=== PATIENT | male | born 1950 | race Caucasian/White ===

== ENCOUNTER → 2018-06-11 07:10 | Outpatient (CLI) | payer OTHER, SELFPAY ==
[2018-06-11 08:39] LABS: Alanine Aminotransferase 42 IU/L (21-72); Albumin 4.1 g/dL (3.5-5.0); Albumin Globulin Ratio 1.5 (1.0-2.8); Alkaline Phosphatase 68 U/L (38-126); Aspartate Aminotransferase 34 IU/L (17-59); BUN Creatinine Ratio 21.1 (6-22); Bilirubin Total 0.8 mg/dL (0.2-1.3); Blood Urea Nitrogen 19 mg/dL (9-20); Calcium 8.7 mg/dL (8.4-10.2); Carbon Dioxide 29 mmol/L (22-32); Chloride 103 mmol/L (98-107); Cholesterol 144 mg/dL (140-199); Estimated Glomerular Filt Rate > 60.0 mL/min (>60); Globulin 2.7 g/dL (1.7-4.1); Glucose 101 mg/dL (80-110); HDL Cholesterol 32 mg/dL (40-60); HEMOLYSIS < 15 (0-50); LDL Cholesterol Calculated 90 mg/dL (<100); Potassium 4.3 mmol/L (3.4-5.1); Sodium 140 mmol/L (137-145); Total Protein 6.8 g/dL (6.3-8.2); Triglycerides 111 mg/dL (35-150)
== END ==
PROVIDERS: PCP Internal Medicine; Visit Provider Internal Medicine
DX: E78.49 Other hyperlipidemia (principal)
CPT/HCPCS: 36415; 80053; 80061

== ENCOUNTER → 2018-06-15 14:52 | Outpatient (CLI) | payer OTHER, SELFPAY ==
[2018-06-15 19:04] LABS: Hep C Virus Ab w/Reflex Quant NEGATIVE s/c (NEGATIVE)
== END ==
PROVIDERS: PCP Internal Medicine; Visit Provider Internal Medicine
DX: Z00.01 Encounter for general adult medical examination with abnormal findings (principal); E78.49 Other hyperlipidemia
CPT/HCPCS: 36415; 86803

== ENCOUNTER → 2018-06-16 08:03 | Outpatient (CLI) | payer OTHER, SELFPAY ==
--- NOTE | 2018-06-16 08:05 | DI.US.S_ITS ---
PROCEDURE: US ABD AORTA ANEURYSM SCREEN INDICATIONS: SCREEN TECHNIQUE: Real time scanning was performed of the aorta and iliac arteries, with image documentation. COMPARISON: None. FINDINGS: Aorta: Proximal aortic diameter measures 2.0 cm. Mid-aorta measures 1.6 cm. Distal aortic diameter is 1.4 cm. Iliac arteries: Right common iliac artery measures 1.1 cm. Left common iliac artery measures 1.0 cm. IMPRESSION: No abdominal aortic aneurysm. Dictated by: Alice Mehta M.D. on 06/16/2018 at 8:52 Approved by: Alice Mehta M.D. on 06/16/2018 at 8:53
== END ==
PROVIDERS: PCP Internal Medicine; Visit Provider Internal Medicine
DX: Z13.6 Encounter for screening for cardiovascular disorders (principal)
CPT/HCPCS: 76706

== ENCOUNTER → 2020-01-05 07:50 | Outpatient (CLI) | payer OTHER, SELFPAY ==
[2020-01-05 08:35] LABS: Alanine Aminotransferase 28 IU/L (<50); Albumin 4.2 g/dL (3.5-5.0); Albumin Globulin Ratio 1.4 (1.0-2.8); Alkaline Phosphatase 66 U/L (38-126); Aspartate Aminotransferase 28 IU/L (17-59); BUN Creatinine Ratio 14.7 (6-22); Bilirubin Total 0.7 mg/dL (0.2-1.3); Blood Urea Nitrogen 16 mg/dL (9-20); Calcium 8.6 mg/dL (8.4-10.2); Carbon Dioxide 31 mmol/L (22-32); Chloride 103 mmol/L (98-107); Cholesterol 146 mg/dL (140-199); Erythrocyte Sedimentation Rate 1 MM/HR (0-15); Estimated Glomerular Filt Rate > 60.0 mL/min (>60); Glucose 106 mg/dL (80-110); HDL Cholesterol 35 mg/dL (40-60); HEMOLYSIS 16 (0-50); LDL Cholesterol Calculated 75 mg/dL (<100); Potassium 4.4 mmol/L (3.4-5.1); Sodium 139 mmol/L (137-145); Total Protein 7.2 g/dL (6.3-8.2); Triglycerides 181 mg/dL (35-150); Uric Acid 6.9 mg/dL (3.5-8.5)
== END ==
PROVIDERS: PCP Internal Medicine; Referring Provider Internal Medicine; Visit Provider Internal Medicine
DX: E78.5 Hyperlipidemia, unspecified (principal); M19.90 Unspecified osteoarthritis, unspecified site
CPT/HCPCS: 36415; 80053; 80061; 84550; 85651

== ENCOUNTER → 2020-03-16 07:51 | Outpatient (CLI) | payer OTHER, SELFPAY ==
[2020-03-16] MEDS: COVID-19 VACC #1, MRNA(MOD) 100 MCG/0.5 ML VIAL IM (07:58)
== END ==
PROVIDERS: PCP Internal Medicine; Visit Provider Internal Medicine
DX: Z23 Encounter for immunization (principal)
CPT/HCPCS: 0011A; 91301

== ENCOUNTER → 2020-04-13 07:43 | Outpatient (CLI) | payer OTHER, SELFPAY ==
[2020-04-13] MEDS: COVID-19 VACC #2, MRNA(MOD) 100 MCG/0.5 ML VIAL IM (07:48)
== END ==
PROVIDERS: PCP Internal Medicine; Visit Provider Internal Medicine
DX: Z23 Encounter for immunization (principal)
CPT/HCPCS: 0012A; 91301

== ENCOUNTER → 2021-03-06 07:23 | Outpatient (CLI) | payer OTHER, SELFPAY ==
[2021-03-06 08:54] LABS: Appearance Urine UA CLEAR; Bilirubin Urine UA NEGATIVE (NEGATIVE); Color Urine UA YELLOW; Glucose Urine UA NEGATIVE (Negative); Ketones Urine UA NEGATIVE (NEGATIVE); Leukocyte Esterase Urine UA NEGATIVE (NEGATIVE); Nitrite Urine UA NEGATIVE (Negative); Occult Blood Urine UA NEGATIVE (Negative); Protein Urine UA NEGATIVE (Negative); Specific Gravity Urine UA 1.025 (1.000-1.035); Urobilinogen Urine UA 0.2 E.U./dL (0.2); pH Urine UA 5.5 (4.5-8.0)
[2021-03-06 09:09] LABS: Add Manual Diff / Slide Review NO; Basophils Absolute Auto 0 /uL (0-100); Basophils Percent Auto 0.8 % (0-2); Eosinophils Absolute Auto 200 /uL (0-450); Eosinophils Percent Auto 3.4 % (2-4); Hemoglobin 15.7 g/dL (13.5-17.5); Lymphocytes Absolute Auto 1400 /uL (1100-4500); Lymphocytes Percent Auto 24.9 % (25-40); Mean Corpuscular HGB Conc 34.9 % (30-36); Mean Corpuscular Hemoglobin 31.6 PG (26-34); Mean Corpuscular Volume 90.5 fL (80-100); Monocytes Absolute Auto 600 /uL (0-900); Monocytes Percent Auto 11.2 % (3-14); Neutrophils Absolute Auto 3400 /uL (1500-7000); Neutrophils Percent Auto 59.7 % (50-75); Platelet Count 151 X10^3/uL (150-400); Red Blood Cell Count 4.97 X10^6/uL (4.5-5.9); Red Cell Distribution Width 12.7 % (11.6-14.8); White Blood Cell Count 5.6 X10^3/uL (4.5-11.0)
[2021-03-06 09:13] LABS: Bacteria Urine None Seen; Culture Indicated Urine Cult Not Indicated; RBC Urine None Seen (0-5/HPF); Squamous Epithelial Cell Urine None Seen (0-5/HPF); WBC Urine None Seen (0-5/HPF)
[2021-03-06 09:41] LABS: Alanine Aminotransferase 27 IU/L (<50); Albumin 3.9 g/dL (3.5-5.0); Albumin Globulin Ratio 1.6 (1.0-2.8); Alkaline Phosphatase 65 U/L (38-126); Aspartate Aminotransferase 30 IU/L (17-59); BUN Creatinine Ratio 14.4 (6-22); Bilirubin Total 0.6 mg/dL (0.2-1.3); Blood Urea Nitrogen 13 mg/dL (9-20); Calcium 8.5 mg/dL (8.4-10.2); Carbon Dioxide 28 mmol/L (22-32); Chloride 106 mmol/L (98-107); Cholesterol 146 mg/dL (140-199); Estimated Glomerular Filt Rate > 60.0 mL/min (>60); Globulin 2.4 g/dL (1.7-4.1); Glucose 105 mg/dL (80-110); HDL Cholesterol 41 mg/dL (40-60); HEMOLYSIS < 15 (0-50); LDL Cholesterol Calculated 81 mg/dL (<100); Potassium 4.4 mmol/L (3.4-5.1); Sodium 140 mmol/L (137-145); Total Protein 6.3 g/dL (6.3-8.2); Triglycerides 121 mg/dL (35-150)
[2021-03-06 09:59] LABS: TSH w/ Reflex to FT4 1.83 uIU/mL (0.47-4.68)
[2021-03-06 10:06] LABS: Prostate Specific Antigen Scrn 1.75 ng/mL (0.1-4.0)
[2021-03-06 10:25] LABS: Vitamin B12 Reflex MMA if <400 514 pg/mL (239-931)
== END ==
PROVIDERS: PCP Family Medicine; Referring Provider Family Medicine; Visit Provider Family Medicine
DX: E78.2 Mixed hyperlipidemia (principal); G89.29 Other chronic pain; R41.3 Other amnesia; R51.9 Headache, unspecified; K21.9 Gastro-esophageal reflux disease without esophagitis; L71.9 Rosacea, unspecified; Z12.5 Encounter for screening for malignant neoplasm of prostate
CPT/HCPCS: 36415; 80053; 80061; 81001; 82607; 84443; 85025; G0103

== ENCOUNTER → 2021-03-10 08:27 | Outpatient (CLI) | payer OTHER, SELFPAY ==
--- NOTE | 2021-03-10 08:28 | DI.MRI.S_ITS ---
PROCEDURE: MR HEAD/BRAIN WO CON INDICATIONS: Chronic headache, not significantly improved with meds TECHNIQUE: Noncontrast axial T1 spin echo, axial T2 fast spin echo, sagittal and axial FLAIR, coronal T2 fast spin echo, axial gradient echo, axial diffusion and ADC through the brain. COMPARISON: None. FINDINGS: Image quality: Excellent. CSF Spaces: Basal cisterns are patent. No extra-axial fluid collections. Ventricles are normal in size and shape. Brain: Mild global cerebral volume loss which appears age commensurate and demonstrates no definite regional or lobar predilection to suggest a specific neuro degenerative disorder. No intracranial masses or hemorrhage. Buckley/white matter interface is normal. Brainstem appears normal. Diffusion-weighted images demonstrate no acute ischemic insult. No chronic ischemic insults. Normal intravascular flow voids are present. Skull and face: Calvarium has normal marrow signal. Orbits appear normal. Sinuses: Sinuses and mastoids are clear. IMPRESSION: Mild global cerebral volume loss, commensurate with age. Otherwise unremarkable MRI of the brain. Dictated by: Kelvin Atkins M.D. on 03/11/2021 at 21:42 Approved by: Kelvin Atkins M.D. on 03/11/2021 at 21:43
== END ==
PROVIDERS: PCP Family Medicine; Referring Provider Family Medicine; Visit Provider Family Medicine
DX: R51.9 Headache, unspecified (principal); G89.29 Other chronic pain
CPT/HCPCS: 70551

== ENCOUNTER → 2021-05-16 09:20 | Outpatient (CLI) | payer OTHER, SELFPAY ==
[2021-05-16 10:59] LABS: COVID19 -Nasal RAPID Negative (Negative)
== END ==
PROVIDERS: PCP Family Medicine; Visit Provider Surgery
DX: Z01.812 Encounter for preprocedural laboratory examination (principal); Z20.822 Contact with and (suspected) exposure to COVID-19
CPT/HCPCS: 87635; C9803

== ENCOUNTER 2021-05-17 13:19 | Day surgery (SDC) | payer OTHER, SELFPAY ==
[2021-05-17 13:42] VITALS: BMI 25.8
[2021-05-17 13:55] VITALS: BP 126/63; PULSE 77; RESP 16; TEMP 37; O2SAT 96
[2021-05-17] MEDS: LACTATED RINGERS 1,000 ML 42 ML IV (14:10)
--- NOTE | 2021-05-17 14:46 | PM.HP.1 ---
History of Present Illness History of Present Illness Date Patient Seen: 05/17/21 Time Patient Seen: 14:46 Chief complaint: SDC Narrative: Eugene is a 70-year-old man who is here for his colonoscopy. His last 1 was 10 years ago and there were no polyps. His first had a few polyps and was performed with minimal sedation which was fine with him. Patient History Medical History (Updated 05/17/21 @ 14:47 by Jarrett Moss MD) Chicken pox Chronic headache Colon cancer screening Colon polyps GERD (gastroesophageal reflux disease) (~2003) Hearing loss Hyperlipidemia Measles Mumps Rosacea (~2014) Tinnitus (~2018) Wears glasses Surgical History Anesthesia History of appendectomy (~2012) History of tonsillectomy (~1959) History of vasectomy (~1989) Family & Social History Family History (Updated 02/28/21 @ 19:40 by Agnes Law) Father Subarachnoid hemorrhage Grandfather Cancer Grandfather Stroke Social History: household members spouse Tobacco & Substance use: Tobacco type cigarettes,cigars Smoking Status Former smoker alcohol intake current alcohol intake frequency 3 or more drinks per day Substance Use Type does not use Meds Home Medications and Allergies Home Medications Medication Instructions Recorded Confirmed Type atorvastatin 10 mg tablet 10 mg DAILY 05/17/21 05/17/21 History Allergies Allergy/AdvReac Type Severity Reaction Status Date / Time No Known Allergies Allergy Uncoded 05/17/21 13:38 Exam Vital Signs (past 8 hours): - 05/17/21 13:55 Temperature 98.6 F Pulse Rate 77 Respiratory Rate 16 Blood Pressure 126/63 Pulse Oximetry 96 Oxygen Delivery Method Room Air Const General: healthy appearing Resp Effort & Inspection: normal respiratory effort GI Palpation: soft Assessment & Plan Assessment and plan (1) Colon cancer screening: Status: Acute Plan 70-year-old man here for colonoscopy for colon cancer screening. We reviewed the risks and benefits and would like to proceed with light sedation only. COVID-19 COVID-19 status: Negative Result date/Date tested (Pos, Neg/Pending): 05/16/21 Time Spent With Patient Critical Care time: I spent a total of [] minutes of critical care time on this patient's care today; this time is exclusive of procedural time.
[2021-05-17] MEDS: fentaNYL 250 MCG/5 ML INJ IV (14:50)
[2021-05-17] MEDS: MIDAZOLAM 5 MG/5 ML VIAL IV (14:50)
--- NOTE | 2021-05-17 15:32 | PM.OP.COLON ---
Operative Date/Time/Diagnoses Date of procedure: 05/17/21 Time of procedure: 15:32 Pre-op diagnosis: Colon cancer screening Post-op diagnosis: same Procedure & Clinicians Study performed: Colonoscopy Same procedure as scheduled: Yes Surgeon: Jarrett Moss Procedure Notes Procedure in detail: Procedure: The patient was brought to the endoscopy suite, placed in left lateral decubitus position. The patient was connected to monitoring devices. A time-out was performed. Sedation was administered. Once the patient was adequately sedated, a digital rectal exam was performed and was normal. The scope was then inserted and advanced to the cecum where the appendiceal orifice was identified and photographed. The scope was then slowly withdrawn over greater than 6 minutes. Mucosa was thoroughly inspected. There were no polyps or diverticula. The scope was retroflexed in the rectum. Few small internal hemorrhoids were noted. The scope was straightened and removed. The patient was awakened and brought to recovery. Versed: 2 mg Fentanyl: 50 mcg EBL: 0 Findings: Normal colon Scope withdrawal time: 10 Sedation minutes: 36 Post-procedure Recommendations: Colonoscopy in 10 years Disposition: PACU
--- NOTE | 2021-05-17 15:42 | SUR.PHASEII ---
discharge instructions reviewed with pt and he verbalized understanding.
[2021-05-17 15:43] VITALS: BP 130/85; PULSE 85; RESP 15; TEMP 36.6; O2SAT 97
== END 2021-05-17 15:55 | disposition home or self-care (01) ==
PROVIDERS: PCP Family Medicine; Referring Provider Surgery; Visit Provider Surgery
PROC: 0DJD8ZZ Inspection of Lower Intestinal Tract, Via Natural or Artificial Opening Endoscopic (ICD-10-PCS; CPT 45378; principal; 2021-05-17 14:30)
DX: Z12.11 Encounter for screening for malignant neoplasm of colon (principal); Z86.010 Personal history of colon polyps; K64.8 Other hemorrhoids
CPT/HCPCS: 45378; 99152; 99153; J2250; J3010

== ENCOUNTER → 2022-02-24 14:15 | Outpatient (CLI) | payer OTHER, SELFPAY ==
[2022-02-24 15:41] LABS: Influenza A - CEPHEID Flu A NEGATIVE (NEGATIVE); Influenza B - CEPHEID Flu B NEGATIVE (NEGATIVE); Respiratory Syncytial Virus Negative (Negative)
[2022-02-24 16:11] LABS: COVID-19 CEPHEID 4-PLEX PCR Negative (Negative)
== END ==
PROVIDERS: PCP Family Medicine; Visit Provider Student in an Organized Health Care Education/Training Program
DX: J02.9 Acute pharyngitis, unspecified (principal)
CPT/HCPCS: 0241U; 87070

== ENCOUNTER → 2022-03-27 07:08 | Outpatient (CLI) | payer OTHER, SELFPAY ==
[2022-03-27 08:05] LABS: Add Manual Diff / Slide Review NO; Basophils Absolute Auto 0 /uL (0-100); Basophils Percent Auto 0.6 % (0-2); Eosinophils Absolute Auto 200 /uL (0-450); Eosinophils Percent Auto 3.7 % (2-4); Hematocrit 45.8 % (41-53); Hemoglobin 15.3 g/dL (13.5-17.5); Lymphocytes Absolute Auto 1700 /uL (1100-4500); Lymphocytes Percent Auto 27.6 % (25-40); Mean Corpuscular HGB Conc 33.4 % (30-36); Mean Corpuscular Hemoglobin 30.5 PG (26-34); Mean Corpuscular Volume 91.2 fL (80-100); Monocytes Absolute Auto 700 /uL (0-900); Monocytes Percent Auto 11.6 % (3-14); Neutrophils Absolute Auto 3600 /uL (1500-7000); Neutrophils Percent Auto 56.5 % (50-75); Platelet Count 182 X10^3/uL (150-400); Red Blood Cell Count 5.03 X10^6/uL (4.5-5.9); White Blood Cell Count 6.3 X10^3/uL (4.5-11.0)
[2022-03-27 08:20] LABS: Alanine Aminotransferase 37 IU/L (<50); Albumin Globulin Ratio 1.4 (1.0-2.8); Alkaline Phosphatase 64 U/L (38-126); Aspartate Aminotransferase 30 IU/L (17-59); Bilirubin Total 0.5 mg/dL (0.2-1.3); Blood Urea Nitrogen 16 mg/dL (9-20); Calcium 8.3 mg/dL (8.4-10.2); Carbon Dioxide 32 mmol/L (22-32); Chloride 102 mmol/L (98-107); Cholesterol 168 mg/dL (140-199); Estimated Glomerular Filt Rate > 60 mL/min (>60); Globulin 2.9 g/dL (1.7-4.1); Glucose 99 mg/dL (80-110); HDL Cholesterol 36 mg/dL (40-60); HEMOLYSIS < 15 (0-50); LDL Cholesterol Calculated 107 mg/dL (<100); Potassium 4.9 mmol/L (3.4-5.1); Sodium 140 mmol/L (137-145); Total Protein 6.9 g/dL (6.3-8.2); Triglycerides 124 mg/dL (35-150)
[2022-03-27 08:50] LABS: Prostate Specific Antigen Scrn 1.98 ng/mL (0.1-4.0)
[2022-03-27 08:51] LABS: TSH w/ Reflex to FT4 2.34 uIU/mL (0.47-4.68)
== END ==
PROVIDERS: PCP Family Medicine; Referring Provider Family Medicine; Visit Provider Family Medicine
DX: E78.5 Hyperlipidemia, unspecified (principal); R03.0 Elevated blood-pressure reading, without diagnosis of hypertension; Z12.5 Encounter for screening for malignant neoplasm of prostate
CPT/HCPCS: 36415; 80053; 80061; 84443; 85025; G0103

== ENCOUNTER → 2023-04-23 07:34 | Outpatient (CLI) | payer OTHER, SELFPAY ==
[2023-04-23 08:08] LABS: Add Manual Diff / Slide Review NO; Basophils Absolute Auto 0 /uL (0-100); Basophils Percent Auto 0.6 % (0-2); Eosinophils Absolute Auto 100 /uL (0-450); Eosinophils Percent Auto 2.6 % (2-4); Hematocrit 47.1 % (41-53); Hemoglobin 16.2 g/dL (13.5-17.5); Lymphocytes Absolute Auto 1600 /uL (1100-4500); Lymphocytes Percent Auto 28.7 % (25-40); Mean Corpuscular HGB Conc 34.4 % (30-36); Mean Corpuscular Hemoglobin 31.7 PG (26-34); Mean Corpuscular Volume 92.1 fL (80-100); Monocytes Absolute Auto 800 /uL (0-900); Monocytes Percent Auto 14.1 % (3-14); Neutrophils Absolute Auto 3100 /uL (1500-7000); Platelet Count 176 X10^3/uL (150-400); Red Blood Cell Count 5.12 X10^6/uL (4.5-5.9); Red Cell Distribution Width 12.5 % (11.6-14.8); White Blood Cell Count 5.7 X10^3/uL (4.5-11.0)
[2023-04-23 08:28] LABS: Alanine Aminotransferase 33 IU/L (<50); Albumin Globulin Ratio 1.5 (1.0-2.8); Alkaline Phosphatase 61 U/L (38-126); Aspartate Aminotransferase 36 IU/L (17-59); BUN Creatinine Ratio 18.8 (6-22); Blood Urea Nitrogen 19 mg/dL (9-20); Calcium 8.6 mg/dL (8.4-10.2); Carbon Dioxide 32 mmol/L (22-32); Chloride 105 mmol/L (98-107); Cholesterol 156 mg/dL (140-199); Estimated Glomerular Filt Rate > 60 mL/min (>60); Globulin 2.7 g/dL (1.7-4.1); Glucose 111 mg/dL (80-110); HDL Cholesterol 41 mg/dL (40-60); HEMOLYSIS < 15 (0-50); LDL Cholesterol Calculated 85 mg/dL (<100); Sodium 139 mmol/L (137-145); Total Protein 6.7 g/dL (6.3-8.2); Triglycerides 150 mg/dL (35-150)
[2023-04-23 08:57] LABS: Prostate Specific Antigen Scrn 2.64 ng/mL (0.1-4.0)
[2023-04-23 09:02] LABS: TSH w/ Reflex to FT4 2.12 uIU/mL (0.47-4.68)
[2023-04-24 08:11] LABS: Apolipoprotein B 87 mg/dL (<90)
== END ==
LOC: LAB 07:35
PROVIDERS: PCP Family Medicine; Referring Provider Family Medicine; Visit Provider Family Medicine
DX: E78.2 Mixed hyperlipidemia (principal); L71.9 Rosacea, unspecified; Z79.899 Other long term (current) drug therapy; Z12.5 Encounter for screening for malignant neoplasm of prostate
CPT/HCPCS: 36415; 80053; 80061; 82172; 84443; 85025; G0103

== ENCOUNTER → 2023-06-01 09:07 | Outpatient (CLI) | payer OTHER, SELFPAY ==
[2023-06-01 09:58] LABS: Influenza A - CEPHEID Flu A NEGATIVE (NEGATIVE); Influenza B - CEPHEID Flu B NEGATIVE (NEGATIVE); Respiratory Syncytial Virus Negative (Negative)
[2023-06-01 11:25] LABS: COVID-19 CEPHEID 4-PLEX PCR Negative (Negative)
== END ==
PROVIDERS: PCP Family Medicine; Visit Provider Physician Assistant Medical
DX: R05.1 Acute cough (principal); J02.9 Acute pharyngitis, unspecified
CPT/HCPCS: 0241U; 87070

== ENCOUNTER → 2023-06-23 11:38 | Outpatient (CLI) | payer OTHER, SELFPAY ==
--- NOTE | 2023-06-23 11:39 | DI.RAD.S_ITS ---
PROCEDURE: XR CHEST 2V INDICATIONS: subacute cough TECHNIQUE: 2 views of the chest were acquired. COMPARISON: None. FINDINGS: Surgical changes and devices: None. Lungs and pleura: Lungs are clear. No pleural effusions or pneumothorax. Mediastinum: Mediastinal contours are normal. Heart size is normal. Bones and chest wall: No suspicious bony abnormalities. Soft tissues appear unremarkable. IMPRESSION: No acute cardiopulmonary abnormality is seen. Dictated by: Alice Mehta M.D. on 06/23/2023 at 16:53 Approved by: Alice Mehta M.D. on 06/23/2023 at 16:54
== END ==
PROVIDERS: PCP Family Medicine; Referring Provider Family Medicine; Visit Provider Family Medicine
DX: R05.3 Chronic cough (principal); J06.9 Acute upper respiratory infection, unspecified
CPT/HCPCS: 71046

== ENCOUNTER → 2023-07-30 07:22 | Outpatient (CLI) | payer OTHER, SELFPAY ==
[2023-07-30 09:19] LABS: Prostate Specific Antigen Scrn 2.05 ng/mL (0.1-4.0)
== END ==
PROVIDERS: PCP Family Medicine; Referring Provider Family Medicine; Visit Provider Family Medicine
DX: Z12.5 Encounter for screening for malignant neoplasm of prostate (principal)
CPT/HCPCS: 36415; G0103

== ENCOUNTER → 2024-01-30 15:54 | Outpatient (CLI) | payer OTHER, SELFPAY | PROVIDERS: PCP Family Medicine; Referring Provider Family Medicine; Visit Provider Family Medicine | DX: Z12.5 Encounter for screening for malignant neoplasm of prostate (principal) | CPT/HCPCS: 36415; G0103 ==

== ENCOUNTER → 2024-05-20 07:01 | Outpatient (CLI) | payer OTHER, SELFPAY ==
[2024-05-20 07:56] LABS: COVID-19 CEPHEID 4-PLEX PCR Negative (Negative); Influenza A - CEPHEID Flu A NEGATIVE (NEGATIVE); Influenza B - CEPHEID Flu B NEGATIVE (NEGATIVE); Respiratory Syncytial Virus Negative (Negative)
== END ==
LOC: LAB 07:02
PROVIDERS: PCP Family Medicine; Visit Provider Nurse Practitioner Family
DX: R06.02 Shortness of breath (principal)
CPT/HCPCS: 0241U

== ENCOUNTER → 2024-07-15 06:58 | Outpatient (CLI) | payer OTHER, SELFPAY ==
[2024-07-15 07:36] LABS: Add Manual Diff / Slide Review NO; Basophils Absolute Auto 0 /uL (0-100); Basophils Percent Auto 0.7 % (0-2); Eosinophils Absolute Auto 200 /uL (0-450); Eosinophils Percent Auto 3.4 % (2-4); Hematocrit 44.9 % (41-53); Hemoglobin 15.5 g/dL (13.5-17.5); Lymphocytes Absolute Auto 1700 /uL (1100-4500); Lymphocytes Percent Auto 30.2 % (25-40); Mean Corpuscular HGB Conc 34.6 % (30-36); Mean Corpuscular Hemoglobin 31.8 PG (26-34); Monocytes Absolute Auto 700 /uL (0-900); Monocytes Percent Auto 11.9 % (3-14); Neutrophils Absolute Auto 3000 /uL (1500-7000); Neutrophils Percent Auto 53.8 % (50-75); Platelet Count 172 X10^3/uL (150-400); Red Blood Cell Count 4.88 X10^6/uL (4.5-5.9); Red Cell Distribution Width 12.9 % (11.6-14.8); White Blood Cell Count 5.5 X10^3/uL (4.5-11.0)
[2024-07-15 07:47] LABS: Hemoglobin A1C% w Est Avg Glu 5.4 % (4.0-6.0)
[2024-07-15 07:56] LABS: HEMOLYSIS < 15 (0-50); Iron 97 ug/dL (49-181)
[2024-07-15 07:59] LABS: Alanine Aminotransferase 33 IU/L (<50); Albumin 4.1 g/dL (3.5-5.0); Albumin Globulin Ratio 1.8 (1.0-2.8); Alkaline Phosphatase 60 U/L (38-126); Aspartate Aminotransferase 33 IU/L (17-59); BUN Creatinine Ratio 21.3 (6-22); Bilirubin Total 0.8 mg/dL (0.2-1.3); Blood Urea Nitrogen 20 mg/dL (9-20); Calcium 8.7 mg/dL (8.4-10.2); Carbon Dioxide 27 mmol/L (22-32); Chloride 103 mmol/L (98-107); Cholesterol 167 mg/dL (140-199); Estimated Glomerular Filt Rate > 60 mL/min (>60); Globulin 2.3 g/dL (1.7-4.1); Glucose 109 mg/dL (70-99); HDL Cholesterol 38 mg/dL (40-60); HEMOLYSIS < 15 (0-50); LDL Cholesterol Calculated 97 mg/dL (<100); Potassium 4.7 mmol/L (3.4-5.1); Sodium 137 mmol/L (137-145); Total Protein 6.4 g/dL (6.3-8.2); Triglycerides 160 mg/dL (35-150)
[2024-07-15 08:09] LABS: Percent Iron Saturation 39 % (20-50); Total Iron Binding Capacity 248 ug/dL (261-462); Transferrin 191 mg/dL (206-381)
[2024-07-15 08:27] LABS: Prostate Specific Antigen Scrn 2.38 ng/mL (0.1-4.0); TSH w/ Reflex to FT4 2.17 uIU/mL (0.47-4.68)
[2024-07-15 08:46] LABS: Vitamin B12 330 pg/mL (239-931)
[2024-07-16 04:39] LABS: Apolipoprotein B 87 mg/dL (<90)
== END ==
PROVIDERS: PCP Family Medicine; Referring Provider Family Medicine; Visit Provider Family Medicine
DX: Z00.00 Encounter for general adult medical examination without abnormal findings (principal); Z12.5 Encounter for screening for malignant neoplasm of prostate; E78.2 Mixed hyperlipidemia; R73.01 Impaired fasting glucose; R53.83 Other fatigue
CPT/HCPCS: 36415; 80053; 80061; 82172; 82607; 83036; 83540; 83550; 84443; 85025; G0103

== ENCOUNTER → 2024-09-07 13:30 | Outpatient (CLI) | payer OTHER, SELFPAY ==
--- NOTE | 2024-09-10 17:59 | DI.NM.S_ITS ---
DATE OF SERVICE: 09/07/2024 NUCLEAR CARDIOLOGY MYOCARDIAL PERFUSION STUDY PROCEDURE: Exercise treadmill stress and rest myocardial perfusion imaging study with gating to assess ejection fraction and regional wall motion. ORDERING PROVIDER: Michale Talavera. INDICATIONS: The patient is a 73-year-old hyperlipidemic male with exertional dyspnea. CARDIAC STRESS: The patient was able to exercise for 10 minutes 7 seconds on a standard Harshad protocol suggesting excellent exercise capacity with an MERCY of -48%, achieving 12.8 METs. He had a normal heart rate and blood pressure response to exercise, achieving a maximum heart rate of 157 bpm (106% of his predicted maximum). He had no chest discomfort or other anginal symptoms. His resting ECG shows sinus rhythm with frequent PVCs, at times in a trigeminal pattern, and RBBB and LAFB with associated ST-segment abnormalities. With stress, his ventricular ectopy resolves and there are no significant ST-segment shifts to suggest ischemia. PVCs return in recovery but without any complex ventricular ectopy. At 9 minutes of exercise at a heart rate of 140 bpm, 26.4 mCi of technetium-99m Myoview was injected and he was imaged 15 minutes later using a gated SPECT acquisition protocol. He returned 3 days later and injected with 26.1 mCi of technetium-99m Myoview while at rest and imaged 15 minutes later, again using a gated SPECT acquisition protocol. FINDINGS: 1. Raw data: There is fairly good myocardial tracer uptake with some evidence for diaphragmatic attenuation. The lung/heart ratio is at the upper limits of normal at 0.42 with a normal TID ratio of 0.89. 2. Quantitated gated SPECT: Post-stress ejection fraction is 71% without any focal wall motion abnormality and specifically the inferior wall has normal contractility. The resting ejection fraction is 74% with a normal resting end-diastolic volume of 74 mL. The right ventricle appears to be borderline enlarged with mildly increased tracer uptake, which can be an indication of a right ventricular overload condition but is nonspecific 3. Myocardial perfusion imaging: Post-stress supine images show a fairly normal myocardial perfusion pattern, although with a subtle defect in the [id number]-rh-aqc inferolateral segment in a pattern consistent with diaphragmatic attenuation, supported by its resolution on the prone images. The resting images are also normal with slight improvement in the vfqprzfp-qx-cuw inferior wall but likely nonspecific given the normal prone images. IMPRESSION: 1. Probable normal myocardial perfusion study, and low risk. 2. Subtle, partially reversible zvuzgiyx-em-[id number] inferolateral perfusion defect that resolves on prone imaging, most consistent with diaphragmatic attenuation artifact. While a small volume of ischemia cannot be entirely excluded, this would still be considered a low-risk study. 3. Normal left ventricular size and systolic function without any focal wall motion abnormality. There is a suggestion of borderline right ventricular enlargement with possible increased right ventricular free wall tracer uptake, which can be a sign of a right ventricular overload condition but requires clinical correlation. 4. Excellent exercise capacity without angina or ECG evidence of ischemia. He had frequent PVCs at rest that resolved with stress but returned in recovery yet without complex ventricular ectopy. Eugene Kamara - RS/fn/MN doc#: [id number]/job#: [id number] dd: 09/10/2024 17:22:00 dt: 09/10/2024 17:40:00 DICTATING /COPIES TO: Isac Funes MD; Michael Talavera, OSCAR MNE: CEASAR;
== END ==
LOC: NUCM 13:31
PROVIDERS: PCP Family Medicine; Referring Provider Family Medicine; Visit Provider Family Medicine
DX: I45.2 Bifascicular block (principal); R06.09 Other forms of dyspnea; R53.83 Other fatigue; E78.5 Hyperlipidemia, unspecified
CPT/HCPCS: 78452; 93017; A9502

== ENCOUNTER → 2024-09-10 12:27 | Outpatient (CLI) | payer OTHER, SELFPAY ==
--- NOTE | 2024-09-10 12:29 | DI.ECHO.S_ITS ---
[facility] +---------+ [facility] : : [address] : : [place] : : [id number] : : Phone: [phone] Echocardiogram Report + + :Name: BRETT CASTILLO Study Date: 09/10/2024 Height: 67 in : :Hospital ReadingLocation: Weight: 170 lb : : Gender: Male BSA: 1.9 m2 : :: 1950 Age: 73 yrs BP: 128/74 mmHg: :Reason For Study: DYPSNEA ON EXERTION : :Ordering Physician: MARLEN, : :LETY Performed By: Kelvin Obando : :Referring: LETY GEE : + + Interpretation Summary Normal LV size and systolic function. LVEF is 60 to 65%. Normal RV size and function. Normal atrial sizes. No significant valvular pathology is noted. Aortic root is dilated at 4.[address] angio of the chest is recommended. Other findings as below. Procedure: A two-dimensional transthoracic echocardiogram with color flow and Doppler was performed. The study quality was technically good. There is no prior echocardiogram noted for this patient. The patient was in normal sinus rhythm during the exam. The patient had occasional PVCs during the exam. Left Ventricle: The left ventricle is normal in size. There is normal left ventricular wall thickness. There is no ventricular septal defect visualized. The ejection fraction is estimated to be 60-65%. There are no focal wall motion abnormalities. Diastolic parameters suggest a relaxation abnormality of the left ventricle, consistent with probable normal filling pressures. Right Ventricle: The right ventricle is normal in size and function. Atria: The left atrial size is normal. Right atrial size is normal. There is no Doppler evidence for an interatrial shunt. Mitral Valve: There is a flat closure plane of the the mitral valve leaflets. The mitral valve leaflets appear mildly thickened. There is trace mitral regurgitation. Aortic Valve: The aortic valve is trileaflet. The aortic valve opens well. There is trace aortic regurgitation. Tricuspid Valve: The tricuspid valve is not well visualized, but is grossly normal. No tricuspid regurgitation. Pulmonic Valve: The pulmonic valve leaflets are thin and pliable; valve motion is normal. There is no pulmonic valvular regurgitation. Great Vessels: The aortic root is moderately dilated. The ascending aorta is mildly enlarged. The pulmonary artery is normal size. The inferior vena cava was not visualized. Pericardium/ Pleura There is no pericardial effusion. MMode/2D Measurements & Calculations LVIDd: 4.6 cm LVOT diam: 1.9 cm LVIDs: 3.0 cm Ao root diam: 4.4 cm FS: 35.1 % asc Aorta Diam: 3.9 cm EPSS: 0.83 cm IVSd: 1.1 cm LVPWd: 0.99 cm LV iraheta. diameter/BSA (cm/m^2): 2.4 LV sys. diameter/BSA (cm/m^2): 1.6 LA A2 area: 16.7 cm2 RA long axis: 5.2 cm LA A4 area: 15.2 cm2 RA area: 11.0 cm2 LA length (vol): 5.6 cm RA vol: 19.9 ml LA vol: 38.1 ml RA : 10.5 ml/m2 LA vol index: 20.2 ml/m2 RVD1 (basal): 3.8 cm RVD2 (mid): 2.9 cm TAPSE: 2.6 cm Doppler Measurements & Calculations Ao V2 max: 136.2 cm/sec LVOT Max Severo: 115.5 cm/sec Ao V2 mean: 97.6 cm/sec LV V1 max P.3 mmHg Ao max P.4 mmHg LV V1 VTI: 20.0 cm Ao mean P.2 mmHg SALOMÓN(I,D): 2.1 cm2 Ao V2 VTI: 25.6 cm SALOMÓN(V,D): 2.3 cm2 sev ratio: 0.78 SALOMÓN indexed to BSA (cm^2/m^2): 1.1 MV E max severo: 49.4 cm/sec PA V2 max: 98.2 cm/sec MV A max severo: 74.1 cm/sec PA V2 mean: 69.5 cm/sec MV E/A: 0.67 PA mean P.1 mmHg Med Peak E' Severo: 5.1 cm/sec PA pr(Accel): 58.4 mmHg E/E' med: 9.6 Lat Peak E' Severo: 5.9 cm/sec E/E' lat: 8.3 E/e' average: 9.0 MV dec time: 0.15 sec SVLVOT): 53.9 ml Reading Physician:03:38 PM
== END ==
PROVIDERS: PCP Family Medicine; Referring Provider Family Medicine; Visit Provider Family Medicine
DX: I77.810 Thoracic aortic ectasia (principal); I77.89 Other specified disorders of arteries and arterioles; R53.83 Other fatigue; R06.09 Other forms of dyspnea
CPT/HCPCS: 93306

== ENCOUNTER → 2024-10-25 08:26 | Outpatient (CLI) | payer OTHER, SELFPAY ==
--- NOTE | 2024-10-25 08:28 | DI.CT.S_ITS ---
PROCEDURE: CT ANGIO CHEST INDICATIONS: Aortic root is dilated at 4.4 cm on ECHO TECHNIQUE: After the administration of intravenous contrast, 2.5 mm thick sections acquired from the lung apices to the posterior lung bases. Maximum intensity projection (MIP) oblique sagittal reformats were then acquired parallel to the aortic arch. For radiation dose reduction, the following was used: automated exposure control. COMPARISON: [facility], ECHO DOPPLER COMPLETE, 09/10/2024, 12:38. FINDINGS: Image quality: Excellent. Aorta: The aortic root is mildly dilated at 4.1 cm, measured oblique on coronal images. The ascending thoracic aorta is not aneurysmal at 3.5 cm. The aortic arch and the descending thoracic aorta are within normal limits. Lower Neck: No enlarged lymph nodes. Thyroid: No thyroid nodules which require sonographic follow up, per consensus guidelines. Axillae: No enlarged lymph nodes. Chest Wall: Unremarkable. Bones: Age-appropriate bony degenerative changes are seen. Accentuated thoracic kyphosis is seen. Lungs and Pleura: No pneumothorax or pleural effusions. Within the right posterior costophrenic angle, there is a soft tissue nodule seen, as on series 5, image 205, measuring 7 mm. Heart: Heart size is normal. No pericardial effusion. Thoracic Vessels: Pulmonary arteries demonstrate normal size. Mediastinum and Nahed: No enlarged lymph nodes. Esophagus: No wall thickening. No hiatal hernia. Upper Abdomen: Diffuse fatty liver infiltration is noted. Visualized upper abdomen solid organs and bowel loops appear normal. IMPRESSION: Minimally dilated aortic root at 4.1 cm. The ascending thoracic aorta is not aneurysmal. There is a 7 mm right lower lobe pulmonary nodule seen. Unless this nodule has previously been worked up as benign, a follow-up noncontrast chest CT in 6-12 months would be recommended. Additional findings: Fatty liver infiltration Dictated by: Guillermo Verduzco M.D. on 10/25/2024 at 15:23 Approved by: Guillermo Verduzco M.D. on 10/25/2024 at 15:27
[2024-10-25 08:48] LABS: Estimated Glomerular Filt Rate > 60 mL/min (>60)
== END ==
LOC: CT 08:27
PROVIDERS: PCP Family Medicine; Referring Provider Family Medicine; Visit Provider Family Medicine
DX: I77.810 Thoracic aortic ectasia (principal); K76.0 Fatty (change of) liver, not elsewhere classified; R91.1 Solitary pulmonary nodule
CPT/HCPCS: 36415; 71275; 82565; Q9967

== ENCOUNTER → 2024-11-01 06:54 | Outpatient (CLI) | payer OTHER, SELFPAY ==
--- NOTE | 2024-11-01 06:55 | DI.ECHO.S_ITS ---
[facility] +---------+ Hospital : : [address] : : [place] : : [id number] : : Phone: [phone] Echocardiogram Report + + :Name: BRETT CASTILLO Study Date: 11/01/2024 Height: 67 in : :[facility] ReadingLocation: Weight: 170 lb : : Gender: Male BSA: 1.9 m2 : :: 1950 Age: 73 yrs BP: 133/78 mmHg: :Reason For Study: DILATED AORTIC ROOT : :Ordering Physician: MARLEN, : :LETY Performed By: Kelvin Obando : :Referring: LETY GEE : + + Interpretation Summary 1) Normal left ventricular size, thickness, wall motion, and systolc function (EF 60-65%). 2) Normal right ventricular size and function. 3) No significant valvular abnormalities. 4) The aortic root is moderately dilated at 4.4cm. 5) Compared to the Echo done 09/10/2024, no significant change. Procedure: A two-dimensional transthoracic echocardiogram with color flow and Doppler was performed. The study quality was technically good. Comparison is made with the echocardiogram of 09/10/2024. The patient was in normal sinus rhythm during the exam. Left Ventricle: The left ventricle is normal in size. Left ventricular wall thickness is mildly increased. There is no ventricular septal defect visualized. The ejection fraction is estimated to be 60-65%. There are no focal wall motion abnormalities. Diastolic parameters suggest a relaxation abnormality of the left ventricle, consistent with probable normal filling pressures. Right Ventricle: The right ventricle is normal in size and function. Atria: The left atrial size is normal. Right atrial size is normal. There is no Doppler evidence for an interatrial shunt. Mitral Valve: There is a flat closure plane of the the mitral valve leaflets. The mitral valve leaflets appear mildly thickened. There is trace mitral regurgitation. Aortic Valve: The aortic valve is trileaflet. The aortic valve opens well. There is no aortic valve stenosis. No aortic regurgitation is present. Tricuspid Valve: The tricuspid valve leaflets are thin and pliable. No tricuspid regurgitation. Pulmonary artery pressures cannot be estimated because of the lack of a measurable TR jet velocity. Pulmonic Valve: The pulmonic valve leaflets are thin and pliable; valve motion is normal. There is no pulmonic valvular regurgitation. Great Vessels: The aortic root is moderately dilated. The ascending aorta is mildly enlarged. The pulmonary artery is normal size. The inferior vena cava was not well visualized. Pericardium/ Pleura There is no pericardial effusion. There is no pleural effusion. MMode/2D Measurements & Calculations LVIDd: 4.9 cm LVOT diam: 1.9 cm LVIDs: 2.8 cm Ao root diam: 4.4 cm FS: 41.9 % asc Aorta Diam: 3.9 cm EPSS: 0.80 cm IVSd: 1.2 cm LVPWd: 0.93 cm LV iraheta. diameter/BSA (cm/m^2): 2.6 LV sys. diameter/BSA (cm/m^2): 1.5 LA A2 area: 14.8 cm2 RA long axis: 4.6 cm LA A4 area: 13.8 cm2 RA area: 12.2 cm2 LA length (vol): 4.9 cm RA vol: 27.6 ml LA vol: 35.1 ml RA : 14.6 ml/m2 LA vol index: 18.6 ml/m2 IVC diam: 1.5 cm RVD1 (basal): 4.1 cm RVD2 (mid): 3.3 cm TAPSE: 2.6 cm Doppler Measurements & Calculations Ao V2 max: 115.5 cm/sec LVOT Max Severo: 93.3 cm/sec Ao V2 mean: 83.8 cm/sec LV V1 max P.5 mmHg Ao max P.3 mmHg LV V1 VTI: 18.8 cm Ao mean P.2 mmHg SALOMÓN(I,D): 2.8 cm2 Ao V2 VTI: 18.8 cm SALOMÓN(V,D): 2.3 cm2 sev ratio: 1.0 SALOMÓN indexed to BSA (cm^2/m^2): 1.5 MV E max severo: 45.2 cm/sec SV(LVOT): 52.8 ml MV A max severo: 71.7 cm/sec MV E/A: 0.63 Med Peak E' Severo: 5.8 cm/sec E/E' med: 7.8 Lat Peak E' Severo: 5.9 cm/sec E/E' lat: 7.6 E/e' average: 7.7 MV dec time: 0.23 sec Reading Physician:12:41 PM
== END ==
LOC: ECHO 06:54
PROVIDERS: PCP Family Medicine; Referring Provider Family Medicine; Visit Provider Family Medicine
DX: I77.810 Thoracic aortic ectasia (principal); I77.89 Other specified disorders of arteries and arterioles
CPT/HCPCS: 93306